=== PATIENT | male | born 1945 | race Native Hawaiian/Other Pacific Islander ===

== ENCOUNTER 2016-06-24 09:03 | Outpatient (CLI) | payer OTHER | END 2016-06-24 19:12 | disposition home or self-care (01) | LOC: CT 09:03 | DX: M54.2 Cervicalgia (principal) ==

== ENCOUNTER 2017-11-29 11:15 | Outpatient (CLI) | payer OTHER ==
[2017-11-29] MEDS ORDERED: METO-837 PO (16:30)
[2017-11-29] MEDS ORDERED: ENDOCET1 TAB PO (16:31)
[2017-11-29] MEDS ORDERED: IPRAAER INH (16:31)
== END 2017-11-29 11:23 | disposition short-term general hospital (02) ==
LOC: AMB 11:15
DX: I46.9 Cardiac arrest, cause unspecified (principal)
CPT/HCPCS: A0425; A0433

== ENCOUNTER 2017-11-29 11:24 | Emergency (ER) | payer OTHER ==
[~2017-11-29] VITALS: Ht 175.3 cm; Wt 99.8 kg
[2017-11-29 13:40] LABS: PLATELET COUNT 175 K/uL (142-355)
[2017-11-29 13:42] LABS: POTASSIUM 4.8 mmol/L (3.6-5.2)
[2017-11-29 13:45] VITALS: BP 104/71
[2017-11-29] MEDS ORDERED: METO-837 PO (16:30)
[2017-11-29] MEDS ORDERED: IPRAAER INH (16:31)
[2017-11-29] MEDS ORDERED: ENDOCET1 TAB PO (16:31)
== END 2017-11-29 13:45 | disposition short-term general hospital (02) ==
LOC: ED 11:24
PROVIDERS: Family Medicine
PROC: 0T9B70Z Drainage of Bladder with Drainage Device, Via Natural or Artificial Opening (ICD-10-PCS; principal; 2017-11-29)
DX: I46.9 Cardiac arrest, cause unspecified (principal)
CPT/HCPCS: 31500; 36600; 51702; 80053; 80307; 81000; 82550; 82805; 84484; 85027; 85379; 92950; 94002; 94003; 94760; 96360; 96361; 96365; 96366; 96374; 96375; 96376; 99291; J0171; J0282; J1265